=== PATIENT | male | born 1960 | race Caucasian/White ===

== ENCOUNTER → 2018-02-02 | Outpatient (CLI) | payer BC ==
[~2018-02-02] VITALS: Ht 180.3 cm; Wt 95.2 kg
[~2018-02-02] MED LIST: ADVIL200 M1 PO; EXCEDRIN EXTRA1 EACH PO; MULTIVITAMIN1 EAC2 PO; NOHOMEMEDS; TYLENOL325 M2 PO; ZANTAC150 MG PO
== END | disposition home or self-care (01) ==
LOC: AMB 10:42
DX: Z12.11 Encounter for screening for malignant neoplasm of colon (principal); K57.30 Diverticulosis of large intestine without perforation or abscess without bleeding; D12.2 Benign neoplasm of ascending colon; K63.5 Polyp of colon; D12.1 Benign neoplasm of appendix; D12.0 Benign neoplasm of cecum; Z87.891 Personal history of nicotine dependence; Z80.42 Family history of malignant neoplasm of prostate; Z82.49 Family history of ischemic heart disease and other diseases of the circulatory system; Z83.3 Family history of diabetes mellitus
CPT/HCPCS: 88305